=== PATIENT | female | born 1955 | race Caucasian/White ===

== ENCOUNTER 2020-03-06 08:21 | Day surgery (SDC) | payer OTHER, SELFPAY ==
[~2020-03-06] VITALS: Ht 154.9 cm; Wt 67.6 kg
[2020-03-06] MEDS ORDERED: LIDOCAINE 2%, 20 ML MDV INJ ONE (08:22)
[2020-03-06] MEDS ORDERED: IOPAMIDOL 50 ML VIAL IV ONE (08:22)
[2020-03-06] MEDS ORDERED: BUPIVACAINE /PF 0.25% 30 ML VIAL INJ ONE (08:22)
[2020-03-06] MEDS ORDERED: methylPREDNISolone ACETATE 80 MG/ML IM ONE (08:22)
[2020-03-06] MEDS ORDERED: MIDAZOLAM HCL 5 MG/5 ML VIAL ONE (09:14)
[2020-03-06] MEDS ORDERED: DIPHENHYDRAMINE INJ 50 MG/ML VIAL ONE (09:15)
[2020-03-06 10:30] VITALS: BP_SYST 131
== END 2020-03-06 11:05 | disposition home or self-care (01) ==
LOC: SDS 08:21 → SMU 08:22 → SDS 11:05
PROVIDERS: ATTEND Internal Medicine
DX: M51.16 Intervertebral disc disorders with radiculopathy, lumbar region (principal); E03.9 Hypothyroidism, unspecified; J45.909 Unspecified asthma, uncomplicated; Z90.710 Acquired absence of both cervix and uterus; Z20.828 Contact with and (suspected) exposure to other viral communicable diseases; Z79.899 Other long term (current) drug therapy
CPT/HCPCS: 62323; J1040; J1200; J2001; J2250; J3490; J7120; Q9967; U0003; 76000

== ENCOUNTER 2020-04-10 08:53 | Day surgery (SDC) | payer OTHER, SELFPAY ==
[~2020-04-10] VITALS: Ht 152.4 cm; Wt 67.6 kg
[2020-04-10] MEDS ORDERED: DIPHENHYDRAMINE INJ 50 MG/ML VIAL ONE (10:51)
[2020-04-10] MEDS ORDERED: MIDAZOLAM HCL 5 MG/5 ML VIAL ONE (10:51)
[2020-04-10 11:27] VITALS: BP_SYST 1
== END 2020-04-10 12:40 | disposition still patient (30) ==
LOC: SDS 08:53 → SMU 08:53 → SDS 12:40
PROVIDERS: ATTEND Internal Medicine
DX: M51.16 Intervertebral disc disorders with radiculopathy, lumbar region (principal); G89.4 Chronic pain syndrome; E03.9 Hypothyroidism, unspecified; J45.909 Unspecified asthma, uncomplicated; Z90.710 Acquired absence of both cervix and uterus; Z79.899 Other long term (current) drug therapy; Z20.828 Contact with and (suspected) exposure to other viral communicable diseases
CPT/HCPCS: 62323; J1200; J2250; U0003; 76000